=== PATIENT | male | born 1955 | race Caucasian/White ===

== ENCOUNTER → 2016-05-18 | Outpatient (CLI) | payer MEDICARE ==
--- NOTE | 2016-05-18 16:35 | XR ---
EXAMINATION TYPE: XR chest 2V DATE OF EXAM: 05/18/2016 12:37 PM COMPARISON: Prior chest x-ray 13 October 2015 HISTORY: COPD, upper respiratory infection TECHNIQUE: Frontal and lateral views of the chest are obtained. FINDINGS: No interval change. Prominent lung volumes may be indicative of underlying COPD. Cardiac m ediastinal silhouette, pulmonary vascularity and irvin are stable. No pneumonia, pneumothorax, or pleu ral effusion. There is eventration of the right hemidiaphragm. IMPRESSION: No acute cardiopulmonary process.
== END | disposition home or self-care (01) ==
LOC: RADXRMAIN 12:18
PROVIDERS: ATTEND Family Medicine
DX: J44.9 Chronic obstructive pulmonary disease, unspecified (principal)
CPT/HCPCS: 71020

== ENCOUNTER 2016-06-08 07:37 | Day surgery (SDC) | payer MEDICARE ==
[2016-06-04 11:39] VITALS: BMI 25.7
[~2016-06-08 07:37] MED LIST: LACTATED RINGERS 1,000 ML IV SCH
[2016-06-08 07:57] VITALS: RESP 16; TEMP 98.1
[2016-06-08] MEDS ORDERED: LIDOCAINE 1% 20 ML VIAL (10MG/ML) FOR IV START INTRADERMA ONE (08:04)
[2016-06-08 09:07] LABS: INR 1.1 (<1.1); Prothrombin Time 11.3 sec (9.0-12.0)
[2016-06-08] MEDS ORDERED: MIDAZOLAM 2 MG/2 ML VIAL IV ONE (10:42)
[2016-06-08] MEDS ORDERED: PROPOFOL 10 MG/ML 20 ML VIAL IV ONE (12:34)
[2016-06-08] MEDS ORDERED: LIDOCAINE 1% INJ 10MG/ML (20 ML MDV) ONE (12:34)
--- NOTE | 2016-06-08 13:04 | P.PCN ---
Date of Procedure: 06/08/16 Preoperative Diagnosis: Constipation Postoperative Diagnosis: Sigmoid diverticuli, internal hemorrhoids, anterior external skin tag, tortuous bowel Procedure(s) Performed: Colonoscopy Anesthesia: MAC Surgeon: Henrietta Hernandez Estimated Blood Loss (ml): 0 IV fluids (ml): 200 Pathology: none sent Condition: stable Disposition: PACU Indications for Procedure: Constipation Operative Findings: Extensive sigmoid diverticuli, tortuous bowel, internal hemorrhoids, external anterior skin tag Description of Procedure: Patient is a 60-year-old gentleman with a history of constipation. He was taken to the endoscopy suite where colonoscopy was performed. Patient was placed in the left lateral decubitus position. Sedation was given. Rectal examination revealed an anterior external skin tag in good sphincter tone. Colonoscope was able to be passed through the anus into the rectum. He was passed to the sigmoid colon. At 30 cm the bowel was very tortuous however we were able to manipulate the scope beyond this point. The patient was noted to have moderate to extensive diverticuli. Scope was passed up to the splenic flexure through the transverse colon hepatic flexure right colon down to the area of the cecum. Circumferential observation mucosa did not reveal any lesions of concern in the cecum or right colon. No lesions of concern were noted in the transverse colon. Diverticuli were present in the sigmoid colon. No polypoid lesions of concern were identified. The scope was brought down to the rectum where it was retroflexed. Internal hemorrhoids were identified. Approximately 6 minutes were taken to withdraw the scope from the area of the cecum to the rectum. Impression/plan 1. Internal hemorrhoids 2. External anterior skin tag 3. Sigmoid diverticuli 4. Tortuous redundant sigmoid colon Plan: 1. Conservative management 2. Repeat scope 7-10 years
--- NOTE | 2016-06-08 13:05 | P.DS ---
Providers Attending physician: Henrietta Hernandez Primary care physician: Ash Burrows Plan - Discharge Summary Discharge Medication List ALPRAZolam [Xanax] 1 mg PO TID 09/14/13 [History] Aspirin 81 mg PO DAILY 09/14/13 [History] Atorvastatin [Lipitor] 40 mg PO HS 09/14/13 [History] Lisinopril [Zestril] 10 mg PO QAM 09/14/13 [History] Warfarin [Coumadin] 5 mg PO MOTUWETHFRSA 09/14/13 [History] Cyclobenzaprine [Flexeril] 10 mg PO TID 10/08/13 [History] Multivitamins, Thera [Multivitamin] 1 tab PO DAILY 10/08/13 [History] Albuterol Sulfate [Proair Hfa] 2 puff INHALATION QID PRN 06/04/16 [History] Budesonide/Formoterol Fumarate [Symbicort 160-4.5 Mcg Inhaler] 2 puff INHALATION BID 06/04/16 [History] Fluticasone Nasal [place] [Flonase Nasal [place]] 2 spr EA NOSTRIL DAILY 06/04/16 [ History] HYDROcodone/APAP 10-325MG [[place] 10-325] 1 tab PO Q6H PRN 06/04/16 [History] Metoprolol Succinate [Toprol XL] 50 mg PO DAILY 06/04/16 [History] Silodosin [Rapaflo] 8 mg PO DAILY 06/04/16 [History] Zolpidem [Ambien] 10 mg PO HS 06/04/16 [History] Activity/Diet/Wound Care/Special Instructions: Diverticular diet Discharge Disposition: HOME SELF-CARE
[2016-06-08 13:24] VITALS: BP 122/80; PULSE 80
== END 2016-06-08 13:44 | disposition home or self-care (01) ==
LOC: ORWHC2ENDO 07:37
PROVIDERS: ATTEND Surgery
DX: K57.30 Diverticulosis of large intestine without perforation or abscess without bleeding (principal); K64.8 Other hemorrhoids; K64.4 Residual hemorrhoidal skin tags; Q43.8 Other specified congenital malformations of intestine; K59.00 Constipation, unspecified; I25.5 Ischemic cardiomyopathy; I10 Essential (primary) hypertension; I65.22 Occlusion and stenosis of left carotid artery; E78.5 Hyperlipidemia, unspecified; I73.9 Peripheral vascular disease, unspecified; I47.1 Supraventricular tachycardia; I25.10 Atherosclerotic heart disease of native coronary artery without angina pectoris; J45.909 Unspecified asthma, uncomplicated; J44.9 Chronic obstructive pulmonary disease, unspecified; F17.210 Nicotine dependence, cigarettes, uncomplicated; Z86.711 Personal history of pulmonary embolism; Z86.718 Personal history of other venous thrombosis and embolism; Z85.46 Personal history of malignant neoplasm of prostate; I25.2 Old myocardial infarction; Z79.01 Long term (current) use of anticoagulants; Z79.82 Long term (current) use of aspirin; Z79.891 Long term (current) use of opiate analgesic; Z79.51 Long term (current) use of inhaled steroids; Z79.899 Other long term (current) drug therapy; Z88.1 Allergy status to other antibiotic agents; Z88.5 Allergy status to narcotic agent; Z82.49 Family history of ischemic heart disease and other diseases of the circulatory system
CPT/HCPCS: 85610; 45378; J2250; J2001; J2704; 99153

== ENCOUNTER → 2016-06-28 | Outpatient (CLI) | payer MEDICARE ==
[2016-06-28 14:13] LABS: CH 33.1; CHCM 32.6; HCT 45.3 % (39.0-53.0); HGB 14.4 gm/dL (13.0-17.5); MCH 32.4 pg (25.0-35.0); MCHC 31.8 g/dL (31.0-37.0); MCV 101.9 fL (80.0-100.0); Macrocytosis Slight; Mean Platelet Volume 7.1; RBC 4.44 m/uL (4.30-5.90); WBC 12.3 k/uL (3.8-10.6)
== END | disposition home or self-care (01) ==
LOC: LABPAT 13:25
PROVIDERS: ATTEND Anesthesiology
DX: Z01.812 Encounter for preprocedural laboratory examination (principal); K43.9 Ventral hernia without obstruction or gangrene
CPT/HCPCS: 85027; 85610

== ENCOUNTER 2016-06-29 12:05 | Day surgery (SDC) | payer MEDICARE ==
[2016-06-24 13:15] VITALS: BMI 25.5
[2016-06-28 14:40] LABS: INR 1.4 (<1.1); Prothrombin Time 13.5 sec (9.0-12.0)
[~2016-06-29 12:05] MED LIST changes: +DEXAMETHASONE SOD PHOSPHATE 10 MG/ML 1 ML VIAL IV ONE; +FAMOTIDINE 20 MG/2 ML VIAL IV PRN; +HEPARIN SODIUM,PORCINE 5,000 UNIT/ML 1 ML VIAL SQ ONE; +HYDROmorphone 1 MG/ML 1 ML SYRINGE IVP PRN; +LIDOCAINE 1% 20 ML VIAL (10MG/ML) FOR IV START INTRADERMA PRN; +MIDAZOLAM 2 MG/2 ML VIAL IV PRN; +SCOPOLAMINE 1.5MG/72HR PATCH TRANSDERM ONE; +ceFAZolin 2 GM in SODIUM CHLORIDE 0.9% 100 ML IVPB ONE
[2016-06-29 12:23] VITALS: RESP 16
[2016-06-29 12:44] LABS: INR 1.2 (<1.1); Prothrombin Time 12.2 sec (9.0-12.0)
[2016-06-29] MEDS ORDERED: SUCCINYLCHOLINE CHLORIDE 100 MG/5 ML SYR IV ONE (14:13)
[2016-06-29] MEDS ORDERED: NEOSTIGMINE 1 MG/ML 10 ML VIAL ONE (14:13)
[2016-06-29] MEDS ORDERED: PROPOFOL 10 MG/ML 20 ML VIAL IV ONE (14:13)
[2016-06-29] MEDS ORDERED: GLYCOPYRROLATE 0.2 MG/ML 2 ML VIAL ONE (14:13)
[2016-06-29] MEDS ORDERED: ROCURONIUM BROMIDE 10 MG/ML 10 ML VIAL IV ONE (14:13)
[2016-06-29] MEDS ORDERED: LIDOCAINE 1% INJ 10MG/ML (20 ML MDV) ONE (14:13)
[2016-06-29] MEDS ORDERED: fentaNYL (PF) 50 MCG/ML 2 ML AMP ONE (14:13)
[2016-06-29] MEDS ORDERED: MIDAZOLAM 2 MG/2 ML VIAL ONE (14:13)
[2016-06-29] MEDS ORDERED: LIDOCAINE 1% INJ 10MG/ML (20 ML MDV) SQ ONE ×2 (14:34)
[2016-06-29] MEDS ORDERED: LACTATED RINGERS 1,000 ML IV ONE (14:49)
[2016-06-29] MEDS ORDERED: HEPARIN SODIUM,PORCINE 5,000 UNIT/ML 1 ML VIAL SQ ONE (15:31)
--- NOTE | 2016-06-29 15:35 | P.OP ---
Date of Procedure: 06/29/16 Preoperative Diagnosis: Left inguinal hernia symptomatic Postoperative Diagnosis: Same Procedure(s) Performed: Left inguinal hernia repair direct and indirect with mesh Anesthesia: JAMARCUS Surgeon: Henrietta Hernandez Estimated Blood Loss (ml): 10 IV fluids (ml): 300 Pathology: other (Hernia sac) Condition: stable Disposition: PACU Indications for Procedure: Symptomatic left inguinal hernia Operative Findings: Left indirect sac and direct defect Description of Procedure: The patient is a 52-year-old white female who presented with a symptomatic left inguinal hernia. The patient wishes for left inguinal hernia repair. We discussed options and he is going to have internal hernia repair. Patient was taken to the operating room and following induction of anesthesia the left groin was prepped and draped in a sterile fashion. Incision was made and carried down to the fascia of the external oblique. That was able to follow this to the external ring. The external oblique was opened and the cord structures were identified and elevated. The area was identified and preserved. Upon dissection of the cord structures and indirect sac was identified. This was cleaned to the internal ring. High ligation was performed and the sac was divided and removed. Following this evaluation particularly of the canal revealed a direct defect. The conjoined tendon was brought down to the shelving edge of the aponeurosis of the external oblique. This was performed using a Prolene suture. Following this an onlay mesh was placed and secured with a Prolene suture. The cord structures were returned to the inguinal canal. The aponeurosis of the external oblique was closed using a 3-0 Vicryl suture. The subcutaneous tissues were closed with 3-0 Vicryl suture. This segment lidocaine was injected into the area of the repair. Approximately 9 mL were used. The skin was reapproximated using 4-0 Monocryl. The patient tolerated the procedure in stable condition. All instrument and sponge counts were correct at the end of the case.
--- NOTE | 2016-06-29 15:37 | P.DS ---
Providers Attending physician: Henrietta Hernandez Primary care physician: Ash Burrows Plan - Discharge Summary New Discharge Prescriptions: HYDROcodone/APAP 5-325MG [[place] 5] 1 - 2 each PO Q4H PRN #20 tab PRN Reason: Pain Discharge Medication List ALPRAZolam [Xanax] 1 mg PO TID PRN 09/14/13 [History] Aspirin 81 mg PO DAILY 09/14/13 [History] Atorvastatin [Lipitor] 40 mg PO HS 09/14/13 [History] Lisinopril [Zestril] 10 mg PO QAM 09/14/13 [History] Warfarin [Coumadin] 5 mg PO MOTUWETHFRSA 09/14/13 [History] Cyclobenzaprine [Flexeril] 10 mg PO TID 10/08/13 [History] Multivitamins, Thera [Multivitamin] 1 tab PO DAILY 10/08/13 [History] Albuterol Sulfate [Proair Hfa] 2 puff INHALATION QID PRN 06/04/16 [History] Budesonide/Formoterol Fumarate [Symbicort 160-4.5 Mcg Inhaler] 2 puff INHALATION BID 06/04/16 [History] Fluticasone Nasal [place] [Flonase Nasal [place]] 2 spr EA NOSTRIL BID 06/04/16 [ History] HYDROcodone/APAP 10-325MG [[place] 10-325] 1 tab PO Q6H PRN 06/04/16 [History] Metoprolol Succinate [Toprol XL] 50 mg PO DAILY 06/04/16 [History] Silodosin [Rapaflo] 8 mg PO DAILY 06/04/16 [History] Zolpidem [Ambien] 10 mg PO HS 06/04/16 [History] Sennosides [Senokot] 8.6 mg PO HS 06/24/16 [History] HYDROcodone/APAP 5-325MG [[place] 5] 1 - 2 each PO Q4H PRN #20 tab 06/29/16 [Rx] Follow up Appointment(s)/Referral(s): Henrietta Hernandez MD [STAFF PHYSICIAN] - 3 Days Activity/Diet/Wound Care/Special Instructions: Drive until seen by Dr. Burrows No heavy lifting nothing over 10 pounds Patient may shower after 48 hours Discharge Disposition: HOME SELF-CARE
[2016-06-29 15:46] VITALS: TEMP 98.2
[2016-06-29 16:46] VITALS: BP 111/64; PULSE 74
== END 2016-06-29 17:00 | disposition home or self-care (01) ==
LOC: OR 12:05
PROVIDERS: ATTEND Surgery
DX: K40.90 Unilateral inguinal hernia, without obstruction or gangrene, not specified as recurrent (principal); I25.5 Ischemic cardiomyopathy; I10 Essential (primary) hypertension; I65.22 Occlusion and stenosis of left carotid artery; E78.5 Hyperlipidemia, unspecified; I73.9 Peripheral vascular disease, unspecified; I47.1 Supraventricular tachycardia; J44.9 Chronic obstructive pulmonary disease, unspecified; F41.9 Anxiety disorder, unspecified; Z86.711 Personal history of pulmonary embolism; Z85.46 Personal history of malignant neoplasm of prostate; Z82.49 Family history of ischemic heart disease and other diseases of the circulatory system; F17.210 Nicotine dependence, cigarettes, uncomplicated; Z79.01 Long term (current) use of anticoagulants; Z79.82 Long term (current) use of aspirin; Z79.891 Long term (current) use of opiate analgesic; Z79.899 Other long term (current) drug therapy; Z88.1 Allergy status to other antibiotic agents; Z88.5 Allergy status to narcotic agent
CPT/HCPCS: 85610 ×2; 49505; C1781; J2250; J1644; J1100; J2710; J0690; J2001; J3010; J0330; J2704; 88302

== ENCOUNTER → 2017-01-07 | Outpatient (CLI) | payer MEDICARE ==
--- NOTE | 2017-01-07 18:22 | CT ---
EXAMINATION TYPE: CT angio head neck DATE OF EXAM: 01/07/2017 HISTORY: left sided carotid stenosis, recent fall COMPARISON: NONE CT DLP: 319.7 mGycm. Automated Exposure Control for Dose Reduction was Utilized. TECHNIQUE: CTA scan of the head and neck is performed with IV Contrast, patient injected with 100 mL of Omnipaque 350, axial images are obtained, coronal and sagittal reformatted images are reviewed. T hree-D reconstructed images are created on an independent workstation and reviewed. FINDINGS: There is arterial flow in the anterior middle and posterior cerebral arteries. There is arterial flow in the vertebrobasilar artery system. Right vertebral artery is larger than the left. There is no ev idence of stenosis. I see no sign of aneurysm or neovascularity. There is no mass effect. There is no rmal contrast opacification of the venous sinuses. There is normal branching pattern of the great vessels on the aortic arch. There is arterial flow in the common internal and external carotid arteries bilaterally. The right carotid artery bifurcation i s widely patent. There is approximately 90% stenosis at the origin of the left internal carotid arter y due to large plaque formation with calcification. External carotid arteries are widely patent. Ther e is no evidence of carotid dissection.: IMPRESSION: Normal CT angiogram of the brain. There is approximate 90% stenosis of the origin of the left internal carotid artery.
== END | disposition home or self-care (01) ==
LOC: RADCTMAIN 17:05
PROVIDERS: ATTEND Internal Medicine Clinical Cardiac Electrophysiology
DX: I65.22 Occlusion and stenosis of left carotid artery (principal)
CPT/HCPCS: 70496; 70498; Q9967

== ENCOUNTER → 2018-02-03 | Outpatient (CLI) | payer MEDICARE ==
--- NOTE | 2018-02-03 15:54 | US ---
EXAMINATION TYPE: US venous doppler duplex LE BI DATE OF EXAM: 02/03/2018 3:33 PM COMPARISON: NONE CLINICAL HISTORY: R60.0 Edema. Right leg pain and swelling SIDE PERFORMED: Right TECHNIQUE: The lower extremity deep venous system is examined utilizing real time linear array sonog morris with graded compression, doppler sonography and color-flow sonography. VESSELS IMAGED: External Iliac Vein (EIV) Common Femoral Vein Deep Femoral Vein Greater Saphenous Vein * Femoral Vein Popliteal Vein Small Saphenous Vein * Proximal Calf Veins (* superficial vessels) Patient is on blood thinners. Right Leg: Positive for DVT. There is thrombus seen in the distal FV through the proximal calf veins with partial compressibility. There is no flow seen distal pop vein through prox calf veins. Left Leg: Negative for DVT Grayscale, color doppler, spectral doppler imaging performed of the deep veins of the bilateral lower extremities. There is normal flow, compressibility, vascular waveforms in the left lower extremity. IMPRESSION: Acute DVT in the right lower extremity is noted as detailed above with preliminary resul ts communicated to ordering physician office by charge histotechnologist shortly after exam was comple arlin.
== END | disposition home or self-care (01) ==
LOC: RADUSMAIN 14:51
PROVIDERS: ATTEND Family Medicine
DX: I82.411 Acute embolism and thrombosis of right femoral vein (principal)
CPT/HCPCS: 93970

== ENCOUNTER → 2018-08-30 | Outpatient (CLI) | payer MEDICARE ==
--- NOTE | 2018-08-30 14:11 | XR ---
EXAMINATION TYPE: XR cervical spine comp DATE OF EXAM: 08/30/2018 COMPARISON: 01/28/2015 HISTORY: Pain TECHNIQUE: Four views are submitted. FINDINGS: The odontoid is intact. There are no compression deformities. The prevertebral soft tissue structur es are within normal limits. There is a vascular stent overlying the left neck likely within the car otid artery. Bilateral soft tissue calcification right likely related atherosclerotic changes of the carotid arteries. There is a grade 1 anterolisthesis of C4 on C5 with multilevel facet arthropathy and multilevel moder ate to severe degenerative disc disease. Foraminal encroachment at level C3-T1 bilaterally. IMPRESSION: 1. Multilevel severe degenerative disc disease with multilevel facet arthropathy and grade 1 anteroli sthesis C4 on C5. Multilevel foraminal encroachment noted. Recommend MRI..
--- NOTE | 2018-08-30 14:12 | XR ---
EXAMINATION TYPE: XR thoracic spine complete DATE OF EXAM: 08/30/2018 COMPARISON: NONE HISTORY: Chronic back pain Alignment is anatomic. There is no compression deformities. There is a surgical clips in the upper abdomen. There is multilevel moderate to severe degenerative disc disease involving the mid and lower thoracic spine. Metallic densities near the thoracolumbar junction may be related to previous surgic al clips rather than foreign body. Correlate clinically. IMPRESSION: 1. Multilevel moderate to severe degenerative disc disease.
--- NOTE | 2018-08-30 14:16 | XR ---
EXAM TYPE: LUMBAR SPINE X RAY SERIES COMPARISON: NONE HISTORY: Pain TECHNIQUE: 4 views are submitted. FINDINGS: Metallic densities in the upper abdomen may be related to previous foreign body exposure surgery. Vas cular calcifications are seen. Suggestion of abdominal aortic aneurysm measuring 3.1 cm. Multilevel d egenerative disc disease and facet arthropathy noted. There is a grade 1 anterolisthesis L5 on S1 wit h severe degenerative changes and facet arthropathy. IMPRESSION: 1. Multilevel degenerative disc disease with severe changes L5-S1. There is a grade 1 anterolisthesis at this level. Foraminal encroachment suspected.
== END | disposition home or self-care (01) ==
LOC: RADXRMAIN 13:21
PROVIDERS: ATTEND Internal Medicine Critical Care Medicine
DX: M43.12 Spondylolisthesis, cervical region (principal); M43.17 Spondylolisthesis, lumbosacral region; M50.321 Other cervical disc degeneration at C4-C5 level; M51.34 Other intervertebral disc degeneration, thoracic region; M51.37 Other intervertebral disc degeneration, lumbosacral region; M46.92 Unspecified inflammatory spondylopathy, cervical region
CPT/HCPCS: 72050; 72072; 72100

== ENCOUNTER → 2018-09-20 | Outpatient (CLI) | payer MEDICARE ==
--- NOTE | 2018-09-21 12:29 | MR ---
EXAMINATION TYPE: MR tspine/lspine wo/w con DATE OF EXAM: 09/20/2018 12:21 PM COMPARISON: NONE HISTORY: intervetebral disc degeneration Multiplanar MultiSpin echo imaging of the thoracic spine was performed. Pre and post contrast-enhanc ed imaging was performed following the administration of 9 mL gadolinium this. Disc spaces: There is mild multilevel degenerative disc disease noted. Mild left paracentral disc bul ge at T4-5. Minimal effacement of ventral thecal sac. No evidence for herniation or central stenosis. Spinal canal: No evidence for canal stenosis. No intrinsic or extrinsic lesion. Thoracic spinal cord: Thoracic spinal cord is of normal caliber and signal. Paraspinal soft tissues: No evidence for paraspinal mass. No destructive lesions seen. Vertebral segments: No evidence for fracture. Hemangioma T11.. Mild scattered ventral spondylosis. No pathologic enhancement identified IMPRESSION: 1. Multilevel degenerative disc disease. Small left paracentral disc bulge T4-5. 2. Severe disc desiccation and disc bulging with central stenosis at C3-4 C5-6 and C6-7. EXAMINATION TYPE: MR tspine/lspine wo/w con DATE OF EXAM: 09/20/2018 12:21 PM COMPARISON: NONE HISTORY: intervertebral disc degeneration CONTRAST: The patient was injected with 9 mL intravenous Gadavist gadolinium contrast. Multiplanar, MultiSpin echo imaging of the lumbar spine was performed. L1-L2: Normal disc appearance without desiccation. No herniation, protrusion or disc bulging. No ca nal stenosis is present. Foramina are patent bilaterally. L2-L3: Normal disc appearance without desiccation. No herniation, protrusion or disc bulging. No ca nal stenosis is present. Foramina are patent bilaterally. L3-L4: Mild disc desiccation noted with circumferential disc bulge and greatest posteriorly. Mild eff acement ventral thecal sac. No evidence for disc herniation or central stenosis. Foramina are patent bilaterally. L4-L5: Normal disc appearance without desiccation. No herniation, protrusion or disc bulging. No ca nal stenosis is present. Foramina are patent bilaterally. L5-S1: Moderate to severe disc desiccation. Grade 1 anterolisthesis L5 on S1 measuring 3 mm. Posterio r disc bulge with mild effacement ventral thecal sac. Mild bilateral foraminal encroachment. Lumbar segments are intact. No paraspinal masses are identified. Conus medullaris has a normal appe arance. IMPRESSION: 1. Degenerative disc disease as discussed. 2. Grade 1 anterolisthesis L5 on S1 with disc bulging. Foraminal encroachment noted at this level.
== END | disposition home or self-care (01) ==
LOC: RADMRIMAIN 10:54
PROVIDERS: ATTEND Family Medicine
DX: M51.24 Other intervertebral disc displacement, thoracic region (principal); M51.34 Other intervertebral disc degeneration, thoracic region; M51.36 Other intervertebral disc degeneration, lumbar region; M43.17 Spondylolisthesis, lumbosacral region; M51.27 Other intervertebral disc displacement, lumbosacral region
CPT/HCPCS: 72157; 72158; A9585

== ENCOUNTER → 2019-05-24 | Outpatient (CLI) | payer MEDICARE ==
[2019-05-24 15:57] LABS: HCT 44.2 % (39.0-53.0); HGB 13.7 gm/dL (13.0-17.5); MCH 31.2 pg (25.0-35.0); Mean Platelet Volume 6.6; Platelet Count 384 k/uL (150-450); RBC 4.38 m/uL (4.30-5.90); RDW 12.6 % (11.5-15.5); WBC 7.2 k/uL (3.8-10.6)
[2019-05-25 01:23] LABS: African American GFR (CKD) 111.7 (60.0-200.0); Albumin 4.3 g/dL (3.80-4.90); Albumin/Globulin Ratio 2.15 (1.60-3.17); Anion Gap 8.2 mmol/L (4.00-12.00); BUN/Creat Ratio 17.5 Ratio (12.00-20.00); Calcium 8.9 mg/dL (8.7-10.3); Carbon Dioxide 28.8 mmol/L (21.6-31.8); Chol/HDL Ratio 2.69; LDL Cholesterol,Calculated 82.2 mg/dL (0.0-131.0); Non-African American GFR(CKD) 96.4 (60.0-200.0); Potassium 4.7 mmol/L (3.5-5.5); Total Bilirubin 0.3 mg/dL (0.2-1.2); Total Protein 6.3 g/dL (6.2-8.2); VLDL Calculation 22.8 mg/dL (5.00-40.00)
== END | disposition home or self-care (01) ==
LOC: LABWHC1 15:13
PROVIDERS: ATTEND Physician Assistant
DX: I48.91 Unspecified atrial fibrillation (principal); E78.5 Hyperlipidemia, unspecified
CPT/HCPCS: 36415; 80053; 80061; 85027

== ENCOUNTER → 2019-05-24 | Outpatient (CLI) | payer MEDICARE ==
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
== END | disposition home or self-care (01) ==
LOC: RADCTMAIN 15:30
PROVIDERS: ATTEND Surgery Plastic and Reconstructive Surgery
DX: K57.30 Diverticulosis of large intestine without perforation or abscess without bleeding (principal)
CPT/HCPCS: 74176

== ENCOUNTER → 2019-09-21 | Outpatient (CLI) | payer MEDICARE | END | disposition home or self-care (01) | LOC: LABWHC1 14:19 | PROVIDERS: ATTEND Surgery Plastic and Reconstructive Surgery | DX: Z11.59 Encounter for screening for other viral diseases (principal) ==

== ENCOUNTER 2019-09-24 06:45 | Day surgery (SDC) | payer MEDICARE ==
[2019-09-21 11:25] VITALS: BMI 26.1
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
[~2019-09-24 06:45] MED LIST changes: +ACETAMINOPHEN TAB 500 MG TAB PO STA; -FAMOTIDINE 20 MG/2 ML VIAL IV PRN; +GABAPENTIN 300 MG CAP PO STA; +HYDROmorphone 0.5 MG/0.5 ML SYRINGE IVP PRN; -HYDROmorphone 1 MG/ML 1 ML SYRINGE IVP PRN; +INDOCYANINE GREEN 25 MG VIAL IV STA; +KETOROLAC 30 MG/ML 1 ML VIAL IVP STA; -LIDOCAINE 1% 20 ML VIAL (10MG/ML) FOR IV START INTRADERMA PRN; +ONDANSETRON 4 MG/2 ML VIAL IVP ONE; -SCOPOLAMINE 1.5MG/72HR PATCH TRANSDERM ONE; +TAMSULOSIN 0.4 MG CAP.ER.24H PO STA; -ceFAZolin 2 GM in SODIUM CHLORIDE 0.9% 100 ML IVPB ONE
[2019-09-24 07:25] VITALS: RESP 16; TEMP 97.5
[2019-09-24] MEDS ORDERED: KETAMINE 10 MG/ML 20 ML VIAL ONE (07:30)
[2019-09-24] MEDS ORDERED: fentaNYL (PF) 50 MCG/ML 2 ML AMP ONE (07:30)
[2019-09-24] MEDS ORDERED: MIDAZOLAM 2 MG/2 ML VIAL ONE (07:30)
[2019-09-24] MEDS ORDERED: GLYCOPYRROLATE 0.2 MG/ML 2 ML VIAL ONE (07:30)
[2019-09-24] MEDS ORDERED: LIDOCAINE 1% INJ 10MG/ML (20 ML MDV) ONE (07:30)
[2019-09-24] MEDS ORDERED: PROPOFOL 10 MG/ML 20 ML VIAL IV ONE (07:30)
[2019-09-24] MEDS ORDERED: NEOSTIGMINE 1 MG/ML 10 ML VIAL ONE (07:30)
[2019-09-24] MEDS ORDERED: ePHEDrine SULFATE/0.9% NACL/PF 50 MG/5 ML SYRINGE IV ONE (07:30)
[2019-09-24] MEDS ORDERED: INDOCYANINE GREEN 25 MG VIAL IV ONE (07:30)
[2019-09-24] MEDS ORDERED: ROCURONIUM BROMIDE 10 MG/ML 5 ML VIAL IV ONE (07:30)
[2019-09-24] MEDS ORDERED: SUCCINYLCHOLINE CHLORIDE 100 MG/5 ML SYR IV ONE (07:30)
[2019-09-24 07:43] LABS: Basophils % (A) 0 %; Eosinophils # (A) 0.3 k/uL (0-0.7); Eosinophils % (A) 3 %; HCT 46.7 % (39.0-53.0); HGB 15.3 gm/dL (13.0-17.5); Lymphocytes % (A) 20 %; MCH 33.3 pg (25.0-35.0); MCHC 32.7 g/dL (31.0-37.0); MCV 101.8 fL (80.0-100.0); Macrocytosis Slight; Mean Platelet Volume 6.6; Monocytes # (A) 0.8 k/uL (0-1.0); Monocytes % (A) 8 %; Neutrophils # (A) 6.4 k/uL (1.3-7.7); Neutrophils % (A) 65 %; Platelet Count 303 k/uL (150-450); RBC 4.59 m/uL (4.30-5.90); RDW 12.7 % (11.5-15.5); WBC 9.8 k/uL (3.8-10.6)
[2019-09-24] MEDS ORDERED: LIDOCAINE 1%-EPI 1:100,000 20 ML VIAL SQ ONE (08:00)
[2019-09-24] MEDS ORDERED: LACTATED RINGERS 1,000 ML IV ONE (08:26)
[2019-09-24 08:32] LABS: ALT 22 U/L (4-49); AST 31 U/L (17-59); African American GFR (CKD) >90 (>60 ml/min/1.73 sqM); Alkaline Phosphatase 83 U/L (38-126); Anion Gap 8 mmol/L; Blood Urea Nitrogen 15 mg/dL (9-20); Calcium 9.2 mg/dL (8.4-10.2); Carbon Dioxide 30 mmol/L (22-30); Chloride 100 mmol/L (98-107); Glucose 80 mg/dL (74-99); Non-African American GFR(CKD) >90 (>60 ml/min/1.73 sqM); Potassium 5.3 mmol/L (3.5-5.1); Sodium 138 mmol/L (137-145); Total Bilirubin 0.6 mg/dL (0.2-1.3); Total Protein 7.1 g/dL (6.3-8.2)
--- NOTE | 2019-09-24 11:07 | P.HPADDEND ---
H&P Addendum H&P Addendum Date: 09/24/19 Benefits and risks of surgery were described to proceed robotic cholecystectomy. Postoperative diet including low-fat diet also reviewed. Follow up within 1 week also reviewed.
[2019-09-24] MEDS ORDERED: HYDROcodone/APAP 5-325MG 1 EACH TAB PO PRN (11:18)
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
[2019-09-24] MEDS ORDERED: KETOROLAC 30 MG/ML 1 ML VIAL IVP SCH (12:00)
[2019-09-24 12:32] VITALS: BP 108/70; PULSE 81
== END 2019-09-24 13:40 | disposition home or self-care (01) ==
LOC: OR 06:45
PROVIDERS: ATTEND Surgery Plastic and Reconstructive Surgery
DX: K81.1 Chronic cholecystitis (principal); K43.0 Incisional hernia with obstruction, without gangrene; K66.0 Peritoneal adhesions (postprocedural) (postinfection); I25.2 Old myocardial infarction; I10 Essential (primary) hypertension; I25.5 Ischemic cardiomyopathy; I48.91 Unspecified atrial fibrillation; I83.93 Asymptomatic varicose veins of bilateral lower extremities; I65.29 Occlusion and stenosis of unspecified carotid artery; G89.4 Chronic pain syndrome; J44.9 Chronic obstructive pulmonary disease, unspecified; E78.5 Hyperlipidemia, unspecified; M19.90 Unspecified osteoarthritis, unspecified site; F17.200 Nicotine dependence, unspecified, uncomplicated; Z79.01 Long term (current) use of anticoagulants; Z79.891 Long term (current) use of opiate analgesic; Z79.51 Long term (current) use of inhaled steroids; Z79.82 Long term (current) use of aspirin; Z79.899 Other long term (current) drug therapy; Z86.711 Personal history of pulmonary embolism; Z85.46 Personal history of malignant neoplasm of prostate; Z98.890 Other specified postprocedural states; Z86.718 Personal history of other venous thrombosis and embolism; Z92.3 Personal history of irradiation; Z87.19 Personal history of other diseases of the digestive system; Z90.89 Acquired absence of other organs; Z96.652 Presence of left artificial knee joint; Z80.1 Family history of malignant neoplasm of trachea, bronchus and lung; Z82.49 Family history of ischemic heart disease and other diseases of the circulatory system
CPT/HCPCS: 88304; 80053; 85025; 49657; 47562; J2250; J1644; J1100; J2710; J0690; J2405; J2001; J3010; J0330; J2704; J1170

== ENCOUNTER → 2019-12-26 | Outpatient (CLI) | payer MEDICARE ==
--- NOTE | 2019-12-26 16:21 | XR ---
EXAMINATION TYPE: XR chest 2V DATE OF EXAM: 12/26/2019 CLINICAL HISTORY: Chest pain for 2 months TECHNIQUE: Frontal and lateral views of the chest are obtained. COMPARISON: 05/18/2016 chest radiograph FINDINGS: The cardiomediastinal silhouette is within normal limits for size. Pulmonary vasculature i s normal. There is no focal air space opacity, pleural effusion, or pneumothorax seen. The osseous st ructures are intact. IMPRESSION: No acute cardiopulmonary process.
== END | disposition home or self-care (01) ==
LOC: RADXRMAIN 15:09
PROVIDERS: ATTEND Family Medicine
DX: R05 Cough (principal)
CPT/HCPCS: 71046

== ENCOUNTER 2020-03-13 10:01 | Day surgery (SDC) | payer MEDICARE ==
[2020-03-11 10:24] VITALS: BMI 26.6
[~2020-03-13 10:01] MED LIST changes: -ACETAMINOPHEN TAB 500 MG TAB PO STA; -DEXAMETHASONE SOD PHOSPHATE 10 MG/ML 1 ML VIAL IV ONE; +DEXAMETHASONE SOD PHOSPHATE 4 MG/ML 1 ML VIAL IV ONE; -GABAPENTIN 300 MG CAP PO STA; -INDOCYANINE GREEN 25 MG VIAL IV STA; -KETOROLAC 30 MG/ML 1 ML VIAL IVP STA; +LIDOCAINE 1% (10MG/ML) FOR IV START INTRADERMA PRN; -TAMSULOSIN 0.4 MG CAP.ER.24H PO STA
[2020-03-13] MEDS ORDERED: GABAPENTIN 300 MG CAP PO STA (10:49)
[2020-03-13] MEDS ORDERED: ACETAMINOPHEN TAB 500 MG TAB PO STA (10:49)
[2020-03-13] MEDS ORDERED: TAMSULOSIN 0.4 MG CAP.ER.24H PO STA ×2 (10:49→16:12)
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
[2020-03-13 11:41] LABS: Basophils # (A) 0.1 k/uL (0-0.2); Basophils % (A) 1 %; Eosinophils # (A) 0.4 k/uL (0-0.7); Eosinophils % (A) 5 %; HCT 44.8 % (39.0-53.0); HGB 14.5 gm/dL (13.0-17.5); Lymphocytes # (A) 1.7 k/uL (1.0-4.8); Lymphocytes % (A) 25 %; MCHC 32.4 g/dL (31.0-37.0); MCV 101.9 fL (80.0-100.0); Mean Platelet Volume 6.7; Monocytes # (A) 0.6 k/uL (0-1.0); Monocytes % (A) 9 %; Neutrophils # (A) 3.7 k/uL (1.3-7.7); Neutrophils % (A) 55 %; Platelet Count 326 k/uL (150-450); RBC 4.39 m/uL (4.30-5.90); RDW 12.3 % (11.5-15.5); WBC 6.7 k/uL (3.8-10.6)
[2020-03-13 11:46] LABS: ALT 20 U/L (4-49); AST 36 U/L (17-59); African American GFR (CKD) >90 (>60 ml/min/1.73 sqM); Albumin 4.2 g/dL (3.5-5.0); Alkaline Phosphatase 66 U/L (38-126); Anion Gap 1 mmol/L; Blood Urea Nitrogen 15 mg/dL (9-20); Calcium 9.4 mg/dL (8.4-10.2); Carbon Dioxide 34 mmol/L (22-30); Chloride 104 mmol/L (98-107); Glucose 80 mg/dL (74-99); Non-African American GFR(CKD) >90 (>60 ml/min/1.73 sqM); Potassium 5.2 mmol/L (3.5-5.1); Sodium 139 mmol/L (137-145); Total Bilirubin 0.5 mg/dL (0.2-1.3); Total Protein 7.2 g/dL (6.3-8.2)
[2020-03-13] MEDS ORDERED: MIDAZOLAM 2 MG/2 ML VIAL IV ONE (12:07)
[2020-03-13 12:09] LABS: Prothrombin Time 10.7 sec (9.0-12.0)
[2020-03-13] MEDS ORDERED: fentaNYL (PF) 50 MCG/ML 2 ML AMP ONE (12:56)
[2020-03-13] MEDS ORDERED: MIDAZOLAM 2 MG/2 ML VIAL ONE (12:56)
[2020-03-13] MEDS ORDERED: GLYCOPYRROLATE 0.2 MG/ML 2 ML VIAL ONE (12:56)
[2020-03-13] MEDS ORDERED: NEOSTIGMINE 1 MG/ML 10 ML VIAL ONE (12:56)
[2020-03-13] MEDS ORDERED: ROPIVACAINE 5 MG/ML 30 ML VIAL ONE (12:56)
[2020-03-13] MEDS ORDERED: LIDOCAINE 1% INJ 10MG/ML (20 ML MDV) ONE (12:56)
[2020-03-13] MEDS ORDERED: DEXAMETHASONE SOD PHOSPHATE 4 MG/ML 1 ML VIAL ONE (12:56)
[2020-03-13] MEDS ORDERED: PROPOFOL 10 MG/ML 20 ML VIAL IV ONE (12:56)
[2020-03-13] MEDS ORDERED: ROCURONIUM 10 MG/ML (10 ML VIAL) IV ONE (12:56)
[2020-03-13] MEDS ORDERED: HYDROmorphone (PF) 1 MG/ML ONE (12:56)
--- NOTE | 2020-03-13 13:20 | P.ANPRN ---
Procedure Note - Anesthesia - Nerve Block Performed Bilateral Rectus Abdominis Single Time Out Performed: Yes Date of Procedure: 03/13/20 Procedure Start Time: 12:06 Procedure Stop Time: 12:11 Location of Patient: PreOp Indication: Acute Post-Operative Pain, Requested by Surgeon Sedation Type: Sedate with meaningful contact maintained Preparation: Sterile Prep Position: Supine Needle Types: [place] Needle Gauge: 21 Ultrasound used to visualize needle placement: Yes Ultrasound used to observe medication spread: Yes Blood Aspirated: No Pain Paresthesia on Injection Noted: No Resistance on Injection: Normal Image Stored and Saved: Yes Events: Uneventful and Well Tolerated (ropi .5% 20cc plus dexamethasone 4mg bilaterally)
[2020-03-13] MEDS ORDERED: LIDOCAINE 1%-EPI 1:100,000 20 ML VIAL SQ ONE ×2 (13:25→13:34)
[2020-03-13] MEDS ORDERED: LACTATED RINGERS 1,000 ML IV ONE (14:00)
[2020-03-13 15:55] VITALS: TEMP 98.7
[2020-03-13 16:02] VITALS: RESP 16
[2020-03-13] MEDS ORDERED: KETOROLAC 15 MG/ML 1 ML VIAL IVP PRN (16:21)
[2020-03-13] MEDS ORDERED: oxyCODONE-APAP 5-325MG 1 EACH TAB PO PRN (16:21)
[2020-03-13 17:27] VITALS: BP 150/90; PULSE 82
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
== END 2020-03-13 17:38 | disposition home or self-care (01) ==
LOC: OR 10:01
PROVIDERS: ATTEND Surgery Plastic and Reconstructive Surgery
DX: K43.0 Incisional hernia with obstruction, without gangrene (principal); K66.0 Peritoneal adhesions (postprocedural) (postinfection); I48.91 Unspecified atrial fibrillation; J44.9 Chronic obstructive pulmonary disease, unspecified; Z86.718 Personal history of other venous thrombosis and embolism; I25.5 Ischemic cardiomyopathy; G89.4 Chronic pain syndrome; E78.5 Hyperlipidemia, unspecified; I10 Essential (primary) hypertension; I65.29 Occlusion and stenosis of unspecified carotid artery; I25.2 Old myocardial infarction; M19.90 Unspecified osteoarthritis, unspecified site; Z86.711 Personal history of pulmonary embolism; I65.22 Occlusion and stenosis of left carotid artery; I73.9 Peripheral vascular disease, unspecified; F17.210 Nicotine dependence, cigarettes, uncomplicated; K57.90 Diverticulosis of intestine, part unspecified, without perforation or abscess without bleeding; M50.20 Other cervical disc displacement, unspecified cervical region; E53.8 Deficiency of other specified B group vitamins; Z85.46 Personal history of malignant neoplasm of prostate; Z92.3 Personal history of irradiation; I83.90 Asymptomatic varicose veins of unspecified lower extremity; R60.0 Localized edema; E88.09 Other disorders of plasma-protein metabolism, not elsewhere classified; Z95.5 Presence of coronary angioplasty implant and graft; Z96.653 Presence of artificial knee joint, bilateral; Z98.890 Other specified postprocedural states; Z80.1 Family history of malignant neoplasm of trachea, bronchus and lung; Z80.9 Family history of malignant neoplasm, unspecified; Z82.49 Family history of ischemic heart disease and other diseases of the circulatory system; Z79.82 Long term (current) use of aspirin; Z79.01 Long term (current) use of anticoagulants; Z79.51 Long term (current) use of inhaled steroids; Z79.899 Other long term (current) drug therapy
CPT/HCPCS: 64488; 80053; 85025; 85610; 49657; C1781; J2250; J1644; J1100; J2710; J0690; J2405; J2001; J3010; J1170; J2795; J2704

== ENCOUNTER → 2020-12-31 | Outpatient (CLI) | payer MEDICARE ==
--- NOTE | 2020-12-31 17:37 | CT ---
EXAMINATION TYPE: CT ChestAbdPelvis w con DATE OF EXAM: 12/31/2020 INDICATION: COPD and lower abdominal pain. COMPARISON: 05/24/2019 CT DLP: 1084.4 mGycm CONTRAST: Performed with Oral Contrast and with IV Contrast, patient injected with 100ml mL of Isovue 300. TECHNIQUE: Axial images at 5 mm thick sections. Reconstructed images in the coronal plane. Delayed images through the kidneys. FINDINGS: CT CHEST: Portion of the thyroid visualized is normal. No suspicious lung nodules or focal infiltrates are present. Emphysematous changes are evident. No enlarged mediastinal or hilar adenopathy is evident. Few scattered small lymph nodes are present. The ascending aorta diameter at the level of the main pulmonary artery is 3.1 cm. The main pulmonary artery diameter at the bifurcation is 2.5 cm. Some coronary artery calcification is noted. CT ABDOMEN: Liver: There appear to be metallic foreign bodies within the liver and just at the diaphragm and post erior medial right chest. Spleen: Normal Pancreas: Normal Adrenal glands: The adrenal glands are normal. Gallbladder: Small gallstones at the neck of the gallbladder are suspected. The gallbladder is nondis tended. Kidneys: No masses are evident. No hydronephrosis is present. No cysts are present. Delayed images were obtained through the kidneys, which remain unremarkable. Aorta: Vascular calcification is within the aorta. There is some minimal fusiform prominence of the mid abdominal aorta. Inferior vena cava: Normal. CT PELVIS: Multiple diverticuli are through the sigmoid colon. Adjacent inflammatory changes to the chest acute diverticulitis is not identified. The study is performed with oral contrast. There are some loops of bowel lacking oral contrast or incompletely distended limiting their evaluation. Oral contrast extend s to the mid transverse colon. Appendix: Normal as visualized. Urinary bladder: Normal. Genitourinary structures: Prostate contains calcifications and is normal in size. Osseous structures: No suspicious lytic or sclerotic lesions. Degenerative disc changes are present L 5-S1. Spondylolysis of L5 is evident. IMPRESSIONS: 1. Diverticulosis without suspicious changes for acute diverticulitis.
== END | disposition home or self-care (01) ==
LOC: RADCTMAIN 13:57
PROVIDERS: ATTEND Internal Medicine Critical Care Medicine
DX: J44.9 Chronic obstructive pulmonary disease, unspecified (principal); K57.30 Diverticulosis of large intestine without perforation or abscess without bleeding
CPT/HCPCS: 71260; 74177; Q9967

== ENCOUNTER 2022-02-17 09:56 | Emergency (ER) | payer MEDICARE ==
[2022-02-17 10:02] VITALS: TEMP 98.1
[2022-02-17] MEDS ORDERED: KETOROLAC 15 MG/ML 1 ML VIAL IVP STA (10:18)
[2022-02-17] MEDS ORDERED: ACETAMINOPHEN TAB 500 MG TAB PO STA (10:18)
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
[2022-02-17] MEDS ORDERED: MORPHINE SULFATE 2 MG/ML SYRINGE IVP STA (10:56)
[2022-02-17 11:40] LABS: ALT 25 U/L (4-49); AST 34 U/L (17-59); African American GFR (CKD) >90 (>60 ml/min/1.73 sqM); Albumin 4.5 g/dL (3.5-5.0); Alkaline Phosphatase 85 U/L (38-126); Anion Gap 11 mmol/L; Blood Urea Nitrogen 14 mg/dL (9-20); Calcium 9.5 mg/dL (8.4-10.2); Carbon Dioxide 27 mmol/L (22-30); Chloride 98 mmol/L (98-107); Glucose 115 mg/dL (74-99); Non-African American GFR(CKD) >90 (>60 ml/min/1.73 sqM); Potassium 4.8 mmol/L (3.5-5.1); Sodium 136 mmol/L (137-145); Total Bilirubin 0.6 mg/dL (0.2-1.3); Total Protein 7.3 g/dL (6.3-8.2)
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
[2022-02-17] MEDS ORDERED: HYDROmorphone 0.5 MG/0.5 ML SYRINGE IVP STA (12:12)
[2022-02-17 12:20] LABS: Basophils # (A) 0.1 k/uL (0-0.2); Basophils % (A) 0 %; Eosinophils # (A) 0.1 k/uL (0-0.7); Eosinophils % (A) 1 %; HCT 44.2 % (39.0-53.0); HGB 14.8 gm/dL (13.0-17.5); Lymphocytes # (A) 1.4 k/uL (1.0-4.8); Lymphocytes % (A) 9 %; MCH 33.3 pg (25.0-35.0); MCHC 33.4 g/dL (31.0-37.0); MCV 99.6 fL (80.0-100.0); Mean Platelet Volume 8.2; Monocytes % (A) 7 %; Neutrophils % (A) 81 %; Partial Thromboplastin Time 23.9 sec (22.0-30.0); Platelet Count 342 k/uL (150-450); Prothrombin Time 10.5 sec (9.0-12.0); RBC 4.44 m/uL (4.30-5.90); RDW 12.8 % (11.5-15.5); WBC 14.8 k/uL (3.8-10.6)
[2022-02-17] MEDS ORDERED: LIDOCAINE 5% PATCH TOPICAL SCH (12:45)
[2022-02-17] MEDS ORDERED: ALPRAZolam 0.5 MG TAB PO STA (13:11)
[2022-02-17 13:20] VITALS: RESP 18
--- NOTE | 2022-02-17 13:24 | CT ---
EXAMINATION TYPE: CT brain cspine wo con DATE OF EXAM: 02/17/2022 COMPARISON: MRI cervical spine October 04, 2011 HISTORY: fall injury with headache and neck pain CT DLP: 1379 mGycm. Automated Exposure Control for Dose Reduction was Utilized. TECHNIQUE: CT scan of the head and cervical spine are performed without contrast. FINDINGS: There is no acute intracranial hemorrhage or midline shift identified. Mild Ventricular a nd sulcal prominence. Weber-white matter differentiation maintained. The calvarium is intact. The glob es are intact and the visualized sinuses are clear. Cervical spine is visualized in its entirety from C1 through upper thoracic levels and redemonstrated straightened alignment without evidence of acute fracture or dislocation. Slight scoliotic curvature and coronal images redemonstrated. Prevertebral soft tissue appears within normal limits. The C1-C 2 articulation is within normal limits on the coronal images. Vertebral body heights are maintained. Moderate disc space narrowing and spurring C5-C6 level. Sskuytku-yv-zokazt disc space narrowing and moderate spurring C6-C7 level. Mild disc space narrowing and mild to moderate spurring C4-C5 level. P osterior disc herniation slightly efface the anterior thecal sac at these levels along with left para central spur disc complex effacing the left anterolateral thecal sac at C3-C4 level axial image 59 re demonstrated. A stent the region of the left carotid bulb is noted on image 41. Moderate underlying e mphysematous change in the visualized upper lungs without pneumothorax. IMPRESSION: 1. There is no acute fracture or dislocation evident in the cervical spine. 2. No acute intracranial hemorrhage or midline shift is seen.
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
[2022-02-17 15:03] VITALS: BP 115/84; PULSE 92
== END 2022-02-17 15:18 | disposition home or self-care (01) ==
LOC: EC 09:56
DX: S22.39XA Fracture of one rib, unspecified side, initial encounter for closed fracture (principal); I48.91 Unspecified atrial fibrillation; J44.9 Chronic obstructive pulmonary disease, unspecified; Z86.718 Personal history of other venous thrombosis and embolism; E78.5 Hyperlipidemia, unspecified; I10 Essential (primary) hypertension; I25.2 Old myocardial infarction; M19.90 Unspecified osteoarthritis, unspecified site; F41.9 Anxiety disorder, unspecified; F17.200 Nicotine dependence, unspecified, uncomplicated; Z79.82 Long term (current) use of aspirin; Z79.899 Other long term (current) drug therapy; Z20.822 Contact with and (suspected) exposure to COVID-19
CPT/HCPCS: 99285; 36415; 93005; 85379; 83880; 80053; 83605; 84484; 85025; 85610; 85730; 87502; 87635; 71046; 72125; 70450; 71275; 96374; 96375 ×2; J2270; J1885; J1170; Q9967

== ENCOUNTER 2022-02-19 13:56 | Emergency (ER) | payer MEDICARE ==
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
[2022-02-19] MEDS ORDERED: KETOROLAC 15 MG/ML 1 ML VIAL IM STA (16:48)
[2022-02-19] MEDS ORDERED: HYDROmorphone 0.5 MG/0.5 ML SYRINGE IM STA (16:58)
[2022-02-19 17:10] VITALS: BP 143/87; PULSE 119; RESP 20; TEMP 98.4
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
== END 2022-02-19 17:55 | disposition home or self-care (01) ==
LOC: EC 13:56
DX: S22.32XA Fracture of one rib, left side, initial encounter for closed fracture (principal); I10 Essential (primary) hypertension; I48.91 Unspecified atrial fibrillation; J44.9 Chronic obstructive pulmonary disease, unspecified; E78.5 Hyperlipidemia, unspecified; I25.2 Old myocardial infarction; M19.90 Unspecified osteoarthritis, unspecified site; I82.409 Acute embolism and thrombosis of unspecified deep veins of unspecified lower extremity; Z79.82 Long term (current) use of aspirin; Z79.899 Other long term (current) drug therapy; Z79.51 Long term (current) use of inhaled steroids; F41.9 Anxiety disorder, unspecified; F17.200 Nicotine dependence, unspecified, uncomplicated; W19.XXXA Unspecified fall, initial encounter
CPT/HCPCS: 71046; 99284; 96372; J1170

== ENCOUNTER → 2022-08-02 | Outpatient (CLI) | payer MEDICARE ==
--- NOTE | 2022-08-02 13:10 | XR ---
EXAMINATION TYPE: XR chest 2V DATE OF EXAM: 08/02/2022 COMPARISON: NONE TECHNIQUE: PA and lateral views submitted. HISTORY: Cough FINDINGS: The lungs are clear and there is no pneumothorax, pleural effusion, or focal pneumonia. Heart size normal and no overt failure. Osseous structures demonstrate hypertrophic and degenerative changes of the spine. A large lesion on follow-up IMPRESSION: 1. No acute process.
== END | disposition home or self-care (01) ==
LOC: RADXRMAIN 12:27
PROVIDERS: ATTEND Family Medicine
DX: J44.9 Chronic obstructive pulmonary disease, unspecified (principal)
CPT/HCPCS: 71046

== ENCOUNTER → 2022-09-14 | Outpatient (CLI) | payer MEDICARE | END | disposition home or self-care (01) | LOC: LABWHC1 14:28 | PROVIDERS: ATTEND Family Medicine | DX: Z53.9 Procedure and treatment not carried out, unspecified reason (principal) ==

== ENCOUNTER → 2022-09-17 | Outpatient (CLI) | payer MEDICARE ==
[2022-09-17 15:18] LABS: Basophils # (A) 0.04 X 10*3/uL (0.00-0.10); Basophils % (A) 0.5 %; Eosinophils # (A) 0.28 X 10*3/uL (0.04-0.35); Eosinophils % (A) 3.5 %; HCT 40.4 % (39.6-50.0); HGB 12.9 g/dL (13.0-17.0); Immature Grans, Automated 0.2 %; Lymphocytes # (A) 1.83 X 10*3/uL (0.90-5.00); Lymphocytes % (A) 22.7 %; MCH 31.6 pg (27.0-32.0); MCHC 31.9 g/dL (32.0-37.0); Mean Platelet Volume 8.4 fL (9.5-12.2); Monocytes # (A) 1.01 X 10*3/uL (0.20-1.00); Monocytes % (A) 12.5 %; NRBC Per 100 WBC 0 /100 WBCS (0.0-0.0); Neutrophils # (A) 4.87 X 10*3/uL (1.80-7.70); Neutrophils % (A) 60.6 %; Platelet Count 241 X 10*3/uL (140-440); RBC 4.08 X 10*6/uL (4.40-5.60); RDW 12.8 % (11.5-14.5); WBC 8.05 X 10*3/uL (4.50-10.00)
[2022-09-17 15:55] LABS: ALT 23 U/L (10-49); AST 23 U/L (14-35); African American GFR (CKD) 108.6 (60.0-200.0); Albumin 3.9 g/dL (3.8-4.9); Alkaline Phosphatase 60 U/L (41-126); BUN/Creat Ratio 15.13 Ratio (12.00-20.00); Blood Urea Nitrogen 12.1 mg/dL (9.0-27.0); Calcium 9.6 mg/dL (8.7-10.3); Carbon Dioxide 26.3 mmol/L (20.0-27.5); Chloride 101 mmol/L (96-109); Chol/HDL Ratio 2.05 Ratio; Globulin 2.3 g/dL (1.6-3.3); Glucose 80 mg/dL (70-110); LDL Cholesterol,Calculated 70.1 mg/dL (0.0-131.0); Non-African American GFR(CKD) 93.7 (60.0-200.0); Potassium 4.7 mmol/L (3.5-5.5); Sodium 138 mmol/L (135-145); Total Protein 6.2 g/dL (6.2-8.2); VLDL Calculation 16.02 mg/dL (5.00-40.00)
== END | disposition home or self-care (01) ==
LOC: LABWHC1 10:06
PROVIDERS: ATTEND Family Medicine
DX: Z12.5 Encounter for screening for malignant neoplasm of prostate (principal); E78.5 Hyperlipidemia, unspecified
CPT/HCPCS: 36415; 80053; 80061; 84153; 84443; 85025

== ENCOUNTER 2022-10-27 12:00 | Day surgery (SDC) | payer MEDICARE ==
[2022-10-22 09:59] VITALS: BMI 22.8
[~2022-10-27 12:00] MED LIST changes: +ATROPINE SULFATE 0.4 MG/ML 1 ML VIAL IM ONE; -DEXAMETHASONE SOD PHOSPHATE 4 MG/ML 1 ML VIAL IV ONE; -HEPARIN SODIUM,PORCINE 5,000 UNIT/ML 1 ML VIAL SQ ONE; -HYDROmorphone 0.5 MG/0.5 ML SYRINGE IVP PRN; -LIDOCAINE 1% (10MG/ML) FOR IV START INTRADERMA PRN; -MIDAZOLAM 2 MG/2 ML VIAL IV PRN; -ONDANSETRON 4 MG/2 ML VIAL IVP ONE
[2022-10-27 12:45] VITALS: RESP 16; TEMP 98.3
[2022-10-27] MEDS ORDERED: PROPOFOL 10 MG/ML 20 ML VIAL IV ONE (13:40)
[2022-10-27] MEDS ORDERED: MIDAZOLAM 2 MG/2 ML VIAL ONE (13:40)
[2022-10-27] MEDS ORDERED: LIDOCAINE 2% INJ 20 MG/ML INTRATRACH ONE (14:04)
[2022-10-27] MEDS ORDERED: LACTATED RINGERS 1,000 ML IV ONE (14:15)
[2022-10-27 15:17] VITALS: BP 145/67; PULSE 80
--- NOTE | 2022-10-27 15:29 | PCN ---
PROCEDURE NOTE PULMONARY/CRITICAL CARE PROCEDURE NOTE: PROCEDURES PERFORMED: Bronchoscopy, airway examination, therapeutic lavage, bronchoalveolar lavage, right middle lobe. PREOPERATIVE DIAGNOSES: Shortness of breath, chest congestion. POSTOPERATIVE DIAGNOSES: Shortness of breath, chest congestion. GEOMAGNETIST: Dr. Villalobos. ANESTHESIA: Provided general anesthesia. The patient's procedure was done in room #1 [facility]. There was informed consent and universal timeout. DESCRIPTION OF PROCEDURE: After the patient was adequately sedated and being fully monitored, the bronchoscope was inserted through the right nostril. It passed through the right nasopharynx into the oropharynx. The hypopharynx was identified. There was yeast noted on the vocal cords. The anterior commissure, true cords, false cords, piriform sinuses, right and left vallecula, and epiglottis all appeared otherwise normal. Again, there was yeast noted on the vocal cords. The bronchoscope was then inserted into the trachea, after the glottic opening was topicalized. There was a moderate amount of tracheomalacia noted in the trachea. The right and left mainstem were topicalized. Of note, there were secretions noted throughout both lungs. We evaluated the right upper lobe and its 3 segments, right middle lobe and its 2 segments, right lower lobe and its 5 segments, left upper lobe and its 2 segments, lingula and its 2 segments and left lower lobe and its 4 segments. There were similar findings throughout of diffuse erythema, and hyperemia, of the airways, noted throughout. In addition, there was significant adherent yeast noted throughout the airways. There was no dominant mass or tumor. With the aid of saline lavage, additional secretions were removed. Again, we did a formal BAL, right middle lobe. The fluid will be sent for analysis, over 30 mL was recovered. The patient tolerated the procedure well. The bronchoscope was withdrawn. There was no immediate complication. MMODL / IJN: [id number] / [facility]
[2022-10-28 05:50] LABS: Appearance,BF Blood Tinged (Clear); RBC, Body Fluid 204250 (0-2000)
[2022-10-28 08:36] LABS: Nucleated Cells, Body Fluid 285 X 10*3/uL
== END 2022-10-27 15:25 | disposition home or self-care (01) ==
LOC: ORWHC2ENDO 12:00
PROVIDERS: ATTEND Internal Medicine Critical Care Medicine
DX: J98.4 Other disorders of lung (principal); J44.9 Chronic obstructive pulmonary disease, unspecified; F17.210 Nicotine dependence, cigarettes, uncomplicated; I25.2 Old myocardial infarction; I25.10 Atherosclerotic heart disease of native coronary artery without angina pectoris; Z95.5 Presence of coronary angioplasty implant and graft; I10 Essential (primary) hypertension; E78.5 Hyperlipidemia, unspecified; I48.91 Unspecified atrial fibrillation; I73.9 Peripheral vascular disease, unspecified; I63.22 Cerebral infarction due to unspecified occlusion or stenosis of basilar artery; Z85.46 Personal history of malignant neoplasm of prostate; Z79.01 Long term (current) use of anticoagulants; Z79.02 Long term (current) use of antithrombotics/antiplatelets; Z79.51 Long term (current) use of inhaled steroids; Z79.899 Other long term (current) drug therapy; Z86.711 Personal history of pulmonary embolism; Z86.718 Personal history of other venous thrombosis and embolism; Z87.19 Personal history of other diseases of the digestive system
CPT/HCPCS: 88108; 88305; 89050; 87070; 87205; 87116; 87102; 87077; 87186; 87206; 31624; J2001; J2250; J0461; J2704; 87252

== ENCOUNTER 2023-03-04 11:00 | Day surgery (SDC) | payer MEDICARE, OTHER ==
[2023-03-02 13:12] VITALS: BMI 22.2
[2023-03-04] MEDS ORDERED: LIDOCAINE 1% (10MG/ML) FOR IV START INTRADERMA ONE (11:44)
[2023-03-04] MEDS ORDERED: LIDOCAINE 2% GLYDO JELLY 6 ML APPL MISCELLANE ONE ×2 (11:47→12:24)
[2023-03-04] MEDS ORDERED: LIDOCAINE 2% (PF) 20 MG/ML 10 ML AMP INHALATION ONE ×3 (11:48→12:24)
[2023-03-04 12:06] VITALS: RESP 16; TEMP 97.2
[2023-03-04] MEDS ORDERED: PROPOFOL 10 MG/ML 20 ML VIAL IV ONE (12:19)
[2023-03-04] MEDS ORDERED: fentaNYL (PF) 50 MCG/ML 2 ML AMP ONE (12:19)
[2023-03-04] MEDS ORDERED: MIDAZOLAM 2 MG/2 ML VIAL ONE (12:19)
[2023-03-04] MEDS ORDERED: LIDOCAINE 1% INJ 10MG/ML (20 ML MDV) ONE (12:19)
[2023-03-04 13:17] VITALS: BP 108/70; PULSE 87
--- NOTE | 2023-03-04 16:07 | PCN ---
PROCEDURE NOTE PROCEDURES PERFORMED: Bronchoscopy, airway examination, therapeutic lavage, and bronchoalveolar lavage. PREOPERATIVE DIAGNOSES: 1. Pseudomonas pneumonia. 2. Chronic obstructive pulmonary disease exacerbation. 3. Retained secretions. POSTOPERATIVE DIAGNOSES: 1. Pseudomonas pneumonia. 2. Chronic obstructive pulmonary disease exacerbation. 3. Retained secretions. FIRST CLIENT COORDINATOR: Dr. Kaylan Villalobos. The patient's procedure took place in room #3 [facility]. There were informed consent and universal time-out. DESCRIPTION OF PROCEDURE: After the patient was adequately sedated by Anesthesia, who provided general anesthesia, the bronchoscope was inserted through the right nostril. It passed through the right nasopharynx into the oropharynx. The hypopharynx was identified and topicalized. The structures in the hypopharynx including anterior commissure, true cords, false cords, piriform sinuses - right and left, valleculae, epiglottis, all appeared relatively normal. There were some secretions noted in the bilateral piriform sinuses. After topicalization, bronchoscope was pushed through the glottic opening into the trachea. There was some [id number] tracheomalacia. Tracheal anatoliy was sharp. The right and left mainstem were topicalized. The left upper lobe and its 2 segments, the lingula and its 2 segments, and the left lower lobe and its 4 segments all had thick secretions throughout. The mucosa on the left side was erythematous and hyperemic. There was some vascular engorgement. There was no definitive mass or tumor. There was no bleeding. On the right side, there was thick Magdalena noted on the airways. The airways were very erythematous and hyperemic. There was some mucosal friability. There were thick secretions noted throughout the right upper lobe and its 3 segments, right middle lobe and its 2 segments, and right lower lobe and its 5 segments. The bronchoscope was wedged into the right middle lobe. A formal BAL took place. 30 mL of turbid fluid was recovered. The fluid will be sent for analysis including cytology and microbiology. The patient tolerated the procedure well. The patient will be discharged after being recovered by Anesthesia on Diflucan 100 mg twice a day for 10 days. The patient will follow up with me in the office. No additional recommendations are made. Prognosis is guarded. MMODL / IJN: [id number] /
[2023-03-05 07:43] LABS: Appearance,BF Cloudy (Clear); RBC, Body Fluid 0 /UL (0-2000)
[2023-03-07 14:29] LABS: Nucleated Cells, Body Fluid 295 /UL
== END 2023-03-04 13:12 | disposition home or self-care (01) ==
LOC: ORWHC2ENDO 11:00
PROVIDERS: ATTEND Internal Medicine Critical Care Medicine
DX: J44.1 Chronic obstructive pulmonary disease with (acute) exacerbation (principal); J15.1 Pneumonia due to Pseudomonas; I10 Essential (primary) hypertension; I48.91 Unspecified atrial fibrillation; I73.9 Peripheral vascular disease, unspecified; C61 Malignant neoplasm of prostate; E78.5 Hyperlipidemia, unspecified; F17.200 Nicotine dependence, unspecified, uncomplicated; Z95.5 Presence of coronary angioplasty implant and graft; Z79.02 Long term (current) use of antithrombotics/antiplatelets; Z79.01 Long term (current) use of anticoagulants; Z79.899 Other long term (current) drug therapy
CPT/HCPCS: 87798 ×3; 87496; 87498; 87529; 88108; 88305; 89050; 87502; 87634; 87070; 87205; 87116; 87102; 87077; 87186; 87206; 31624; J2250; J0461; J2001 ×2; J3010; J2704

== ENCOUNTER → 2023-05-24 | Outpatient (CLI) | payer MEDICARE ==
--- NOTE | 2023-05-24 10:23 | US ---
EXAMINATION TYPE: US Aorta Screening DATE OF EXAM: 05/24/2023 COMPARISON: NONE CLINICAL INDICATION: Male, 67 years old with history of Z13.6 ENCOUNTER FOR SCREENING FOR CARDIOVASCU LAR D; AAA screening TECHNIQUE: Multiple sonographic images of the abdominal aorta are obtained. FINDINGS: EXAM MEASUREMENTS: Abdominal Aorta: Proximal: 1.8 x 1.8 cm Mid: 1.9 x 2.0 cm Distal: 2.3 x 2.0 cm Bifurcation: Right Iliac: 1.1 x .9 cm Left Iliac: 1.1 x 1.0 cm PLYCOR OPERATOR NOTES: IMPRESSION: No evidence for abdominal aortic aneurysm.
[2023-05-24 17:57] LABS: Chol/HDL Ratio 1.86 Ratio; LDL Cholesterol,Calculated 49.7 mg/dL (0.0-131.0)
== END | disposition home or self-care (01) ==
LOC: RADUSWWP 09:42
PROVIDERS: ATTEND Family Medicine
DX: Z12.5 Encounter for screening for malignant neoplasm of prostate (principal); Z13.6 Encounter for screening for cardiovascular disorders; E78.5 Hyperlipidemia, unspecified
CPT/HCPCS: 80061; 76706; 36415; G0103

== ENCOUNTER → 2023-06-09 | Outpatient (CLI) | payer MEDICARE ==
[2023-06-10 02:16] LABS: HCT 42.6 % (39.6-50.0); HGB 13.7 g/dL (13.0-17.0); MCH 32.1 pg (27.0-32.0); MCHC 32.2 g/dL (32.0-37.0); MCV 99.8 FL (80.0-97.0); Mean Platelet Volume 8.5 FL (9.5-12.2); NRBC Per 100 WBC 0 X 10*3/uL (0.00-0.01); Platelet Count 301 X 10*3/uL (140-440); RBC 4.27 X 10*6/uL (4.40-5.60); RDW 12.6 % (11.5-14.5); WBC 7.17 X 10*3/uL (4.50-10.00)
[2023-06-10 02:55] LABS: Blood Urea Nitrogen 11.1 mg/dL (9.0-27.0); Carbon Dioxide 26.4 mmol/L (21.6-31.8); Chloride 98 mmol/L (96-109); Potassium 4.5 mmol/L (3.5-5.5); Sodium 138 mmol/L (135-145)
== END | disposition home or self-care (01) ==
LOC: LABPAT 14:05
PROVIDERS: ATTEND Internal Medicine Interventional Cardiology
DX: Z01.812 Encounter for preprocedural laboratory examination (principal); I25.10 Atherosclerotic heart disease of native coronary artery without angina pectoris; R94.39 Abnormal result of other cardiovascular function study
CPT/HCPCS: 36415; 80051; 82565; 84520; 85027

== ENCOUNTER 2023-06-13 08:14 | Day surgery (SDC) | payer MEDICARE ==
[2023-06-08 13:46] VITALS: BMI 22.2
[~2023-06-13 08:14] MED LIST changes: +ALPRAZolam 0.25 MG TAB PO PRN; +ALPRAZolam 0.5 MG TAB PO PRN; -ATROPINE SULFATE 0.4 MG/ML 1 ML VIAL IM ONE; -LACTATED RINGERS 1,000 ML IV SCH; +NITROGLYCERIN SL TABS 0.4 MG TAB SUBLINGUAL PRN
[2023-06-13] MEDS: SODIUM CHLORIDE 0.9% 1,000 ML in EMPTY BAG 1 BAG IV SCH ×2 (09:29→16:43)
[2023-06-13] MEDS ORDERED: HEPARIN SODIUM 1,000 UN/ML (10ML VL) ONE (09:38)
[2023-06-13] MEDS: MIDAZOLAM 2 MG/2 ML VIAL IVP ONE ×2 (09:42→09:52)
[2023-06-13] MEDS: LIDOCAINE 1% INJ 10MG/ML (20 ML MDV) SQ ONE (09:44)
[2023-06-13] MEDS: VERAPAMIL SYRINGE (5 MG/10 ML) INTRAARTER ONE (09:45)
[2023-06-13] MEDS: HEPARIN SODIUM 1,000 UN/ML (10ML VL) IV ONE (09:50)
[2023-06-13] MEDS: IOPAMIDOL-370 100ML BTL INJ ONE ×2 (10:16→10:31)
[2023-06-13] MEDS: NITROGLYCERIN 1000MCG/10ML SYRINGE INTRACORON ONE (10:21)
[2023-06-13] MEDS ORDERED: ALBUTEROL HFA INHALER INHALATION PRN (10:33)
[2023-06-13] MEDS ORDERED: PROMETHAZINE HCL 6.25 MG/5 ML CUP PO PRN (10:33)
[2023-06-13] MEDS ORDERED: RX INFO: IV CONTRAST WAS GIVEN 1 EACH MISC MISCELLANE PRN (10:34)
[2023-06-13] MEDS ORDERED: MAG HYDROX/AL HYDROX/SIMETH 30 ML CUP PO PRN (10:34)
[2023-06-13] MEDS ORDERED: NITROGLYCERIN SL TABS 0.4 MG TAB SUBLINGUAL PRN (10:34)
[2023-06-13] MEDS ORDERED: ATROPINE SULFATE 0.1 MG/ML 10ML SYRINGE IV PRN (10:34)
--- NOTE | 2023-06-13 10:39 | P.PCN ---
Date of Procedure: 06/13/23 Operative Findings: CARDIAC CATHETERIZATION AND PERCUTANEOUS CORONARY INTERVENTION PERFORMING PHYSICIAN: Jackson Werner MD, [facility] PROCEDURE PERFORMED: 1. Selective right and left coronary angiogram 2. Successful stenting of distal LCx using 3.5 x 15 mm Xience HENRRY with an excellent angiographic results and without adjunctive use of intravascular imaging (IVUS) 4. Ultrasound-guided access of the right radial artery INDICATION: Abnormal myocardial perfusion imaging stress is showing inferolateral ischemia in this 67-year-old gentleman who is symptomatic with chest discomfort and has multiple risk factors for coronary artery disease and does have carotid atherosclerosis COMPLICATION: None APPROACH: Right radial artery LEVEL OF SEDATION: Moderate with the sedation time off 40 to minutes PROCEDURE DESCRIPTION: After obtaining an informed consent, the patient was brought to cardiac botany laboratory assistant. Local anesthesia was performed using lidocaine subcutaneously. The right radial artery was cannulated using micropuncture technique under ultrasound guidance and the micropuncture wire passed easily then placed a 6-Malian sheath over the wire. Subsequently the sheath was flushed and secured. Following that, 2 mg of verapamil along with 5000 unit heparin were given. Selective right and left coronary angiogram using a 6-Malian JR4 and JL 3.5 catheters. Following that we did left heart catheterization using 6-Malian pigtail catheter. The procedure was completed there was no complication. SELECTIVE CORONARY ANGIOGRAM: The right coronary artery: Large caliber vessel and a dominant vessel. The RCA has mild disease only. Distally bifurcates into PDA and PLV branches and appeared to have mild disease only. Left main: It is angiographically normal. Is a short left main. Bifurcates into an LCx and LAD The left circumflex: Large caliber vessel and codominant vessel was critical disease distally The left anterior descending artery: Large caliber vessel was mild disease only. Gives rises into a large diagonal branch which seems to be normal. PCI OF THE LCx: Anticoagulation was initiated using heparin with continuous ACT monitoring. Subsequently I did engage the left main using JL 3.5 guiding catheter. I did wire the left circumflex using 2 wires the first wire was run-through wire and the second wire was whisper wire because the left circumflex was extremely tortuous and I was concerned about delivering balloons and stents. After that I did intravascular ultrasound and that showed a diameter around 3.5 mm. The lesion was not very calcified. Predilatation was performed using 3.25 mm noncompliant balloon before I deployed 3.5 mm x 15 mm stent and postdilated using 4 mm noncompliant balloon. Final angiogram showed good angiographic results and the procedure was completed was no complication CONCLUSION: Critical disease involving a dominant distal left circumflex. I performed successful stenting of the left circumflex as described above POSTPROCEDURE MANAGEMENT: 1. Dual antiplatelet therapy using aspirin and Plavix for at least 6 month 2. Aggressive cholesterol control 3. Follow-up with the patient
[2023-06-13] MEDS: SODIUM CHLORIDE 0.9% 1,000 ML IV ONE (15:00)
[2023-06-13] MEDS: ASPIRIN 325 MG TAB PO STA (16:43)
[2023-06-13] MEDS: ATORVASTATIN 40 MG TAB PO SCH (20:10)
[2023-06-13] MEDS: HYDROcodone/APAP 5-325MG 1 EACH TAB PO SCH (20:11)
[2023-06-13] MEDS: ZOLPIDEM 5 MG TAB PO PRN (20:11)
[2023-06-13] MEDS: SENNOSIDES 8.6 MG TAB PO SCH (20:11)
[2023-06-13] MEDS: CYCLOBENZAPRINE 10 MG TAB PO SCH (20:11)
[2023-06-13] MEDS: SYMBICORT 160-4.5 MCG INHALER INHALATION SCH (20:59)
[2023-06-13] MEDS ORDERED: NON FORMULARY DRUG (Suvorexant [Belsomra] 20 MG Tablet) PO PRN (21:00)
[2023-06-14 07:54] VITALS: BP 125/77; PULSE 86; RESP 18; TEMP 97.4
[2023-06-14] MEDS: lisinopriL 10 MG TAB PO SCH (09:22)
[2023-06-14] MEDS: METOPROLOL SUCCINATE (ER) 100 MG TAB.ER.24H PO SCH (09:22)
[2023-06-14] MEDS: CLOPIDOGREL 75 MG TAB PO SCH (09:22)
[2023-06-14] MEDS: FLUTICASONE 50MCG/SPRAY NASAL 16GM EA NOSTRIL SCH (09:40)
--- NOTE | 2023-06-14 09:54 | P.DS ---
Providers Attending physician: Jackson Werner Consults: 06/13/23 10:34 Consult Physician Routine Consulting Provider: [facility] Consult Reason/Comments: Post Interventional Patient Do you want consulting provider notified?: Already Contacted Primary care physician: Ash Burrows [facility] Course: This is a 67-year-old gentleman with carotid atherosclerosis and prior revascularization as well as hypertension and dyslipidemia who sees Dr. Gabriel on regular basis who was seen in the office recently for chest discomfort and underwent myocardial perfusion imaging stress test showed inferolateral ischemia/reversibility. Subsequently he scheduled to undergo a heart catheterization. He underwent heart catheterization yesterday and was found to have critical disease involving the distal left circumflex which was a dominant left circumflex coronary artery. The patient underwent successful stenting of the left circumflex from right radial approach with an excellent angiographic results with adjunctive use of intravascular imaging. The patient was seen and evaluated this morning. Today's 06/14/2023. He is asymptomatic from a cardiovascular standpoint of view and reports no pain in the chest and no shortness of breath and no dizziness or lightheadedness. The right radial site is soft and nontender with extensive bruises but no discrete hematoma noted. The patient is going to be discharged home on triple therapy. He does have atrial fibrillation. The patient will be discharged on Eliquis 2.5 mg by mouth twice a day along with Plavix 75 mg by mouth daily along with aspirin for 4 weeks. Subsequently after 4 weeks aspirin can be stopped and the patient will continue on low-dose anticoagulation using Eliquis at 2.5 mg by mouth daily along with Plavix 75 mg by mouth daily for 6 months. After that Plavix could be stopped completely. The patient will follow with Dr. Gabriel as an outpatient Plan - Discharge Summary Discharge Rx Participant: No New Discharge Prescriptions: New Aspirin 81 mg PO DAILY #90 tab Continue Cyclobenzaprine [Flexeril] 10 mg PO BID Albuterol Sulfate [Proair Hfa] 2 puff INHALATION RT-Q6H PRN PRN Reason: Shortness Of Breath Budesonide/Formoterol Fumarate [Symbicort 160-4.5 Mcg Inhaler] 2 puff INHALATION RT-BID Fluticasone Nasal [place] [Flonase Nasal [place]] 2 spr EA NOSTRIL DAILY Sennosides [Senokot] 17.2 mg PO HS Apixaban [Eliquis] 2.5 mg PO BID Rosuvastatin Calcium 20 mg PO HS Clopidogrel [Plavix] 75 mg PO DAILY lisinopriL [Zestril] 10 mg PO QAM Suvorexant [Belsomra] 20 mg PO HS HYDROcodone/APAP 5-325MG [[place] 5-325] 1 tab PO BID Metoprolol Succinate (ER) [Toprol XL] 100 mg PO DAILY Promethazine/Dextromethorphan [Promethazine-Dm 6.25-15 mg/5Ml] 5 ml PO Q4-6H PRN #473 ml PRN Reason: Cough Discharge Medication List Cyclobenzaprine [Flexeril] 10 mg PO BID 10/08/13 [History] Albuterol Sulfate [Proair Hfa] 2 puff INHALATION RT-Q6H PRN 06/04/16 [History] Budesonide/Formoterol Fumarate [Symbicort 160-4.5 Mcg Inhaler] 2 puff INHALATION RT-BID 06/04/16 [History] Fluticasone Nasal [place] [Flonase Nasal [place]] 2 spr EA NOSTRIL DAILY 06/04/16 [History] Sennosides [Senokot] 17.2 mg PO HS 06/24/16 [History] Apixaban [Eliquis] 2.5 mg PO BID 09/21/19 [History] Rosuvastatin Calcium 20 mg PO HS 03/11/20 [History] Metoprolol Succinate (ER) [Toprol XL] 100 mg PO DAILY 02/17/22 [History] Promethazine/Dextromethorphan [Promethazine-Dm 6.25-15 mg/5Ml] 5 ml PO Q4-6H PRN #473 ml 02/17/22 [Rx] Clopidogrel [Plavix] 75 mg PO DAILY 10/22/22 [History] lisinopriL [Zestril] 10 mg PO QAM 10/22/22 [History] Suvorexant [Belsomra] 20 mg PO HS 03/02/23 [History] HYDROcodone/APAP 5-325MG [[place] 5-325] 1 tab PO BID 06/08/23 [History] Aspirin 81 mg PO DAILY #90 tab 06/14/23 [Rx] Follow up Appointment(s)/Referral(s): Tevin Gabriel MD [STAFF PHYSICIAN] - 06/24/23 9:00 am (FOLLOW UP APPOINTMENT MADE. ) Patient Instructions/Handouts: *Surgery [facility] - After Heart Catheterization - Acquisition Specialist Instructions, Heart Catheterization (DC)
== END 2023-06-14 10:25 ==
LOC: CATHCVL 08:14 → 3SCARD 15:37 → CATHCVL 06-14 10:25
PROVIDERS: ATTEND Internal Medicine Interventional Cardiology
DX: R94.39 Abnormal result of other cardiovascular function study (principal); E11.9 Type 2 diabetes mellitus without complications; E78.5 Hyperlipidemia, unspecified; I10 Essential (primary) hypertension; I48.91 Unspecified atrial fibrillation; Z79.01 Long term (current) use of anticoagulants; Z79.02 Long term (current) use of antithrombotics/antiplatelets; Z79.82 Long term (current) use of aspirin; Z79.899 Other long term (current) drug therapy; Z95.5 Presence of coronary angioplasty implant and graft
CPT/HCPCS: 94640 ×2; 92978; 93458; 76937; 99152; 99153 ×2; C1769 ×4; C9600; C1887; C1894; C1753; C1874; C1725 ×2; J2250; J2001; J1644; Q9967; J2305

== ENCOUNTER → 2023-08-25 | Outpatient (CLI) | payer MEDICARE | END | disposition home or self-care (01) | LOC: LABWHC1 12:11 | PROVIDERS: ATTEND Nurse Practitioner Adult Health | DX: I48.0 Paroxysmal atrial fibrillation (principal) | CPT/HCPCS: 36415; 84443 ==

== ENCOUNTER → 2024-11-13 | Outpatient (CLI) | payer MEDICARE ==
--- NOTE | 2024-11-13 14:23 | CTL ---
EXAMINATION TYPE: CT Low Dose Lung DATE OF EXAM ORDERED: 11/13/2024 COMPARISON: CTA chest 02/17/2022, CT chest abdomen and pelvis 12/31/2020 CLINICAL INDICATION: Male, 69 years old with history of Z12.2 LUNG CA SCR, F17.210 CURRENT SMOKER; PH H, personal tobacco use, Lung cancer screening, History of Smoking/tobacco use. TECHNIQUE: Low dose computed tomography scan was performed through the chest at 1 mm thick sections a nd reconstructed images in multiple planes at 1 mm and [address] DLP: [address] CTDI: 1.8 mGy Automated exposure control for dose reduction was used. CT DIAGNOSTIC QUALITY: Satisfactory FINDINGS: Nodules: No clinically significant pulmonary nodules. LUNGS: COPD: Severity: Mild centrilobular emphysematous changes. Fibrosis: Severity: None Lymph nodes: None Other findings: There is some metallic shrapnel identified within the pleural regions of the medial a spect of the right lower lobe. Minimal linear scarring within the bilateral lower lobes. RIGHT PLEURAL SPACE: Effusion: None Calcification: None Thickening: None Pneumothorax: None LEFT PLEURAL SPACE: Effusion: None Calcification: None Thickening: None Pneumothorax: None HEART: Heart Size: Normal Coronary Calcification: Moderate Pericardial Effusion: None OTHER FINDINGS: Upper abdomen: Multiple metallic shrapnel are identified within the posterior right upper quadrant ex tending into the right hepatic lobe. Cholelithiasis. Bony thorax: Remote healed posterior left ninth and 10th rib fractures. Supraclavicular region: None Other: Stable aneurysmal dilatation of aortic root measuring 4.3 cm. Normal caliber ascending thoraci c aorta measuring 3.3 cm and descending thoracic aorta measuring 2.7 cm. IMPRESSION: 1. No clinically significant pulmonary nodules. 2. Mild emphysematous change. 3. Stable aortic root aneurysm dilatation measuring 4.[address] LUNG RAD AND CT CHEST RECOMMENDATION: Lung-Rad 1 Negative: Continue annual screening with LDCT in 12 months. S Modifier (other clinically significant findings): None [facility], , 11/13/2024 2:20 PM
== END | disposition home or self-care (01) ==
LOC: RADCTMAIN 13:20
PROVIDERS: ATTEND Internal Medicine Critical Care Medicine
DX: Z12.2 Encounter for screening for malignant neoplasm of respiratory organs (principal); F17.210 Nicotine dependence, cigarettes, uncomplicated; J43.2 Centrilobular emphysema; K80.20 Calculus of gallbladder without cholecystitis without obstruction; I70.0 Atherosclerosis of aorta
CPT/HCPCS: 71271